=== PATIENT | male | born 1970 | race Caucasian/White ===

== ENCOUNTER 2016-07-05 23:34 | Emergency (ER) | payer OTHER ==
[2016-07-06] MEDS ORDERED: SODIUM CHLORIDE 0.9% 1,000 ML ONE (00:44)
== END 2016-07-06 05:12 | disposition home or self-care (01) ==
LOC: ER 23:34
DX: T52.8X1A Toxic effect of other organic solvents, accidental (unintentional), initial encounter (principal)
CPT/HCPCS: 36415; 80053; 80320; 81003; 83930; 85025; 85610; 85730; 96360